=== PATIENT | male | born 1970 | race Caucasian/White ===

== ENCOUNTER → 2019-07-10 | Emergency (ER) | payer SELFPAY ==
[~2019-07-10] MED LIST: Insulin Regular 300 UNITS/3 ML VIAL ONE; Lorazepam 2 MG/ML VIAL ONE; Ondansetron PF 4 MG/2 ML Vial ONE; Potassium Chloride 20 MEQ/100 ML PREMIX BAG ONE; Promethazine HCl 25 MG/ML VIAL ONE
--- NOTE | 2019-07-10 14:48 | RAD ---
XR Chest 1 View Portable History: Tachycardia Comparison: None. Findings: Lungs are clear. No pneumothorax or effusion. Cardiac silhouette and mediastinal contours a re within normal limits. No acute osseous abnormality. Impression: No acute intrathoracic abnormality.
[2019-07-10 14:55] LABS: Hemoglobin 18.8 g/dL (14.0-18.0); Mean Corpuscular HGB CONC 32.6 g/dL (32.0-36.0); Mean Corpuscular Hemoglobin 34.8 pg (27.0-31.0); Mean Platelet Volume 10.2 fL (7.4-10.4); Platelet Count 130 thou/uL (130-400); RBC Distribution Width 12.4 % (11.5-14.5); Red Blood Cell (RBC) Count 5.39 mill/uL (4.70-6.10)
[2019-07-10 15:03] LABS: ALT (SGPT) 72 U/L (8-55); AST (SGOT) 111 U/L (5-34); Acetaminophen Less than 6.0 mcg/mL (10.0-30.0); Albumin 5.2 g/dL (3.5-5.0); Alcohol Less than 10 mg/dL (Less than 10); Alkaline Phosphatase 115 U/L (40-110); Anion Gap 47 mmol/L (10-20); BUN (Urea Nitrogen) 25 mg/dL (8.9-20.6); Bilirubin, Total 2.9 mg/dL (0.2-1.2); Calc. Creatinine Clearance 0 mL/min (70-130); Calcium 10.6 mg/dL (7.8-10.44); Carbon Dioxide 20 mmol/L (22-29); Estimated GFR-MDRD 22; Globulin 3.8 g/dL (2.4-3.5); Glucose 294 mg/dL (70-105); Magnesium 2.1 mg/dL (1.6-2.6); Salicylate Less than 8.0 mg/dL (15.0-30.0); Sodium 137 mmol/L (136-145)
[2019-07-10 15:08] LABS: Chloride 73 mmol/L (98-107); Potassium 2.5 mmol/L (3.5-5.1)
[2019-07-10 15:15] LABS: #Lymphocytes 1.4 thou/uL (1.20-3.40); #Monocytes 0.9 thou/uL (0.11-0.59); #Neutrophils 7.8 thou/uL (1.40-6.50); %Basophils 0.4 % (0.0-1.0); %Eosinophils 0.1 % (0.0-10.0); %Lymphocytes 13.7 % (21.0-51.0); %Monocytes 8.5 % (0.0-10.0); %Neutrophils 77.4 % (42.0-75.0)
[2019-07-10 15:16] LABS: MDiff Complete? YES; Macrocytosis MARKED = >30 cells (100X) (0-5/hpf)
[2019-07-10 15:18] LABS: CKMB 4.7 ng/mL (0-6.6)
== END ==
LOC: BURERS 14:02
DX: F10.239 Alcohol dependence with withdrawal, unspecified (principal); N17.9 Acute kidney failure, unspecified; E86.0 Dehydration; E87.8 Other disorders of electrolyte and fluid balance, not elsewhere classified; E87.6 Hypokalemia; E11.9 Type 2 diabetes mellitus without complications
CPT/HCPCS: 36416; 71045; 80053; 80307; 82553; 83605; 83690; 83735; 84484; 85025; 93005; 96361; 96365; 96366; 96375; 36415-59; J1815; J2060; J2405; J2550; J3480

== ENCOUNTER 2019-09-17 08:07 | Emergency (ER) | payer SELFPAY ==
[2019-09-17] MEDS ORDERED: Ondansetron PF 4 MG/2 ML Vial ONE (08:42)
[2019-09-17] MEDS ORDERED: Fentanyl 100 MCG/2 ML VIAL ONE (08:42)
[2019-09-17 08:49] LABS: Hemoglobin 16.9 g/dL (14.0-18.0); Mean Corpuscular HGB CONC 33.8 g/dL (32.0-36.0); Mean Corpuscular Hemoglobin 34.4 pg (27.0-31.0); Mean Platelet Volume 11.8 fL (7.4-10.4); Platelet Count 105 thou/uL (130-400); RBC Distribution Width 12.2 % (11.5-14.5); Red Blood Cell (RBC) Count 4.91 mill/uL (4.70-6.10)
[2019-09-17 09:02] LABS: INR-International Normal Ratio 1.1; PTT 25.5 SEC (22.9-36.1); Prothrombin Time 13.9 sec (12.0-14.7)
[2019-09-17 09:07] LABS: #Basophils 0.1 thou/uL (0.0-0.2); #Eosinphils 0.1 thou/uL (0.0-0.7); #Lymphocytes 3.1 thou/uL (1.20-3.40); #Monocytes 0.6 thou/uL (0.11-0.59); #Neutrophils 3.2 thou/uL (1.40-6.50); %Basophils 1.2 % (0.0-1.0); %Eosinophils 1.2 % (0.0-10.0); %Lymphocytes 43.9 % (21.0-51.0); %Monocytes 7.9 % (0.0-10.0); %Neutrophils 45.8 % (42.0-75.0); ALT (SGPT) 21 U/L (8-55); AST (SGOT) 67 U/L (5-34); Acetaminophen Less than 6.0 mcg/mL (10.0-30.0); Albumin 4.2 g/dL (3.5-5.0); Alcohol 137 mg/dL (Less than 10); Alkaline Phosphatase 93 U/L (40-110); Anion Gap 27 mmol/L (10-20); BUN (Urea Nitrogen) 10 mg/dL (8.9-20.6); Bilirubin, Total 2.4 mg/dL (0.2-1.2); Calc. Creatinine Clearance 0 mL/min (70-130); Calcium 8.8 mg/dL (7.8-10.44); Carbon Dioxide 25 mmol/L (22-29); Chloride 84 mmol/L (98-107); Eosinophils 1 % (0-10); Estimated GFR-MDRD 60; Globulin 3.1 g/dL (2.4-3.5); Glucose 185 mg/dL (70-105); Lipase 25 U/L (8-78); Lymphocytes 40 % (21-51); MDiff Complete? YES; Macrocytosis SLIGHT = 6-15 cells (100X) (0-5/hpf); Magnesium 1.3 mg/dL (1.6-2.6); Monocytes 9 % (0-10); Neutrophil 49 % (42-75); Platelet Morphology Comment Appears Decreased; Protein, Total 7.3 g/dL (6.0-8.3); Salicylate Less than 8.0 mg/dL (15.0-30.0); Sodium 134 mmol/L (136-145)
[2019-09-17 09:09] LABS: Potassium 2.2 mmol/L (3.5-5.1)
[2019-09-17] MEDS ORDERED: Magnesium 2 GM/50 ML BAG (IN WATER) ONE (09:32)
[2019-09-17] MEDS ORDERED: Potassium Chloride 20 MEQ/100 ML PREMIX BAG ONE ×2 (09:32→09:34)
[2019-09-17] MEDS ORDERED: Thiamine HCl 200 MG/2 ML VIAL ONE (10:07)
[2019-09-17] MEDS ORDERED: Potassium Chloride 20 MEQ TAB ONE (10:07)
--- NOTE | 2019-09-17 14:30 | CT ---
CT OF THE BRAIN WITHOUT CONTRAST: 09/17/19 Comparison is made with the 07/10/2019 scan. The exam remains unremarkable in appearance showing aristides l sized ventricles with no shift. No intracranial bleeding, extra-axial hematoma, or sign of stroke w as found. No mass or edema was seen. The skull shows no fracture. The visible paranasal sinuses and m astoid air cells are clear. IMPRESSION: No acute intracranial findings. Preliminary report called to Dr. Holley at 0854 on 09/17/2019. POS: HOME
--- NOTE | 2019-09-17 14:32 | RAD ---
PORTABLE CHEST: DATE: 09/17/2019. FINDINGS: An AP portable film at 0938 is compared with a 07/10/2019 study. The heart is normal in size and the lungs are clear. No infiltrate or effusion was seen. There has been no adverse interval change. IMPRESSION: Stable exam showing no acute findings. POS: HOME
== END 2019-09-17 10:30 | disposition short-term general hospital (02) ==
LOC: BURERS 08:07
DX: S01.01XA Laceration without foreign body of scalp, initial encounter (principal); E87.6 Hypokalemia; E83.42 Hypomagnesemia; F10.129 Alcohol abuse with intoxication, unspecified; E11.9 Type 2 diabetes mellitus without complications; F17.210 Nicotine dependence, cigarettes, uncomplicated; W18.30XA Fall on same level, unspecified, initial encounter
CPT/HCPCS: 12004; 70450; 71045; 80053; 80307; 83605; 83690; 83735; 85025; 85610; 85730; 87040; 93005; 96365; 96372; 96375; J2405; J3010; J3411; J3475; J3480

== ENCOUNTER 2019-11-27 14:57 | Emergency (ER) | payer OTHER ==
[2019-11-27] MEDS ORDERED: Lorazepam 2 MG/ML VIAL SLOW IVP ONE (14:58)
[2019-11-27] MEDS ORDERED: Lorazepam 2 MG/ML VIAL ONE ×2 (15:21→16:29)
[2019-11-27 15:31] LABS: INR-International Normal Ratio 1.3; Prothrombin Time 16.2 sec (12.0-14.7)
[2019-11-27 15:33] LABS: Hemoglobin 12.2 g/dL (14.0-18.0); Mean Corpuscular HGB CONC 31.3 g/dL (32.0-36.0); Mean Corpuscular Hemoglobin 37.6 pg (27.0-31.0); Mean Platelet Volume 11.3 fL (7.4-10.4); Platelet Count 121 thou/uL (130-400); RBC Distribution Width 18.4 % (11.5-14.5); Red Blood Cell (RBC) Count 3.25 mill/uL (4.70-6.10); White Blood Cell (WBC) Count 9.5 thou/uL (4.8-10.8)
[2019-11-27 15:40] LABS: ALT (SGPT) 153 U/L (8-55); AST (SGOT) 289 U/L (5-34); Albumin 3.2 g/dL (3.5-5.0); Alkaline Phosphatase 154 U/L (40-110); Anion Gap 46 mmol/L (10-20); BUN (Urea Nitrogen) 14 mg/dL (8.9-20.6); Bilirubin, Total 11.3 mg/dL (0.2-1.2); Calc. Creatinine Clearance 0 mL/min (70-130); Calcium 8.9 mg/dL (7.8-10.44); Carbon Dioxide 12 mmol/L (22-29); Chloride 81 mmol/L (98-107); Estimated GFR-MDRD 44; Globulin 2.6 g/dL (2.4-3.5); Protein, Total 5.8 g/dL (6.0-8.3); Sodium 136 mmol/L (136-145)
[2019-11-27 15:41] LABS: Acetaminophen Less than 6.0 mcg/mL (10.0-30.0); Alcohol Less than 10 mg/dL (Less than 10); CK (CPK) 111 U/L (30-200); Salicylate Less than 8.0 mg/dL (15.0-30.0)
[2019-11-27 15:42] LABS: Glucose 59 mg/dL (70-105); Potassium 2.9 mmol/L (3.5-5.1)
[2019-11-27 15:48] LABS: Bilirubin Large (Negative); Blood, Urine Trace (Negative); Clarity Cloudy (Clear); Glucose, Urine (Dipstick) 100 mg/dL (Negative); Ketone, Urine 40 mg/dL (Negative); Leukocyte Negative (Negative); Nitrite Negative (Negative); Protein, Urine (Dipstick) 100 mg/dL (Neg-Trace); Urobilinogen > or = 8.0 mg/dL (Less than 2); pH, Urine 5.5 (5.0-9.0)
[2019-11-27 15:49] LABS: Specific Gravity, Urine 1.027 (1.002-1.036)
[2019-11-27 15:52] LABS: Bacteria/HPF 3+ HPF (None Seen); Mucous/LPF 2+ LPF (<2+); RBC/HPF 0-3 HPF (0-3); Squamous Epithelial 0-3 HPF (0-3); WBC/HPF 0-3 HPF (0-3)
--- NOTE | 2019-11-27 15:55 | CT ---
CT BRAIN WITHOUT CONTRAST: HISTORY: Altered mental status COMPARISON: 09/17/2019 FINDINGS: No evidence of acute infarct, hemorrhage, midline shift or abnormal extra-axial fluid collections is seen. The ventricular size is appropriate and the basilar cisterns are patent. The bony calvarium is intact. The mastoid air cells are well aerated. There is mucosal disease in the paranasal sinuses. IMPRESSION: No CT evidence of acute intracranial process.
[2019-11-27 15:56] LABS: #Basophils 0.1 thou/uL (0.0-0.2); #Lymphocytes 1.6 thou/uL (1.20-3.40); #Monocytes 0.7 thou/uL (0.11-0.59); #Neutrophils 7.1 thou/uL (1.40-6.50); %Basophils 0.8 % (0.0-1.0); %Lymphocytes 16.6 % (21.0-51.0); %Monocytes 7.5 % (0.0-10.0); MDiff Complete? YES; Macrocytosis MARKED = >30 cells (100X) (0-5/hpf)
[2019-11-27 15:59] LABS: Amphetamine Not Detected (NotDetected); Barbiturates Screen Not Detected (NotDetected); Benzodiazepine Screen Detected (NotDetected); Cocaine Metabolite Screen Not Detected (NotDetected); Medtox Control Line Valid? VALID (VALID); Methadone Not Detected (NotDetected); Methamphetamine Not Detected (NotDetected); Opiate Screen Not Detected (NotDetected); Oxycodone Screen Not Detected (NotDetected); Phencyclidine (PCP) Not Detected (NotDetected); THC/Cannabinoid Screen Not Detected (NotDetected); Tricyclic Screen Not Detected (NotDetected)
[2019-11-27] MEDS ORDERED: Multivit, Adult Inj 10 ML VIAL ONE (15:59)
[2019-11-27] MEDS ORDERED: Thiamine HCl 200 MG/2 ML VIAL ONE (15:59)
[2019-11-27] MEDS ORDERED: Magnesium 2 GM/50 ML BAG (IN WATER) ONE (15:59)
--- NOTE | 2019-11-27 16:05 | RAD ---
XR Chest 1 View Portable HISTORY: Altered mental status COMPARISON: 09/17/2019 FINDINGS: The heart size is normal. The lungs are without focal areas of consolidation, pneumothorax or pleural effusions. IMPRESSION: No radiographic evidence of acute cardiopulmonary process.
== END 2019-11-27 16:33 | disposition short-term general hospital (02) ==
LOC: BURERS 14:57
DX: F10.231 Alcohol dependence with withdrawal delirium (principal); Y90.0 Blood alcohol level of less than 20 mg/100 ml; K72.90 Hepatic failure, unspecified without coma; E87.6 Hypokalemia; E83.42 Hypomagnesemia; E87.2 Acidosis; E11.9 Type 2 diabetes mellitus without complications; F17.210 Nicotine dependence, cigarettes, uncomplicated
CPT/HCPCS: 51702; 70450; 71045; 80053; 80306; 80307; 81003; 81015; 82140; 82550; 83605; 83735; 83880; 84484; 85025; 85610; 93005; 94760; 96361; 96365; 96374; 96376; J2060; J3411; J3475